=== PATIENT | female | born 1985 | race Caucasian/White ===

== ENCOUNTER 2016-09-09 02:38 | Inpatient (IN) | payer OTHER ==
[~2016-09-09] VITALS: Ht 167.6 cm; Wt 108.0 kg
[2016-09-09] MEDS ORDERED: MORPHINE SULFATE INJ 2 MG/ML DISP.SYRIN ONE (03:16)
[2016-09-09] MEDS ORDERED: MORPHINE SULFATE INJ 4 MG/ML DISP.SYRIN ONE (03:16)
[2016-09-09] MEDS ORDERED: IV NS 0.9% 1,000 ML ONE (03:16)
[2016-09-09] MEDS ORDERED: ONDANSETRON HCL/PF 4 MG/2 ML VIAL ONE (03:16)
[2016-09-09] MEDS ORDERED: FAMOTIDINE/PF INJ 20 MG/2 ML VIAL IV ONE ×2 (03:17→03:30)
[2016-09-09] MEDS ORDERED: IV NS 0.9% 1,000 ML BAG IV ONE (03:30)
[2016-09-09] MEDS ORDERED: ONDANSETRON HCL/PF 4 MG/2 ML VIAL IVP ONE (03:30)
[2016-09-09] MEDS ORDERED: MORPHINE SULFATE INJ 2 MG/ML DISP.SYRIN IV ONE (03:30)
[2016-09-09 03:53] LABS: BASOPHILS % (AUTO) 0.5 % (0.0-2.0); DIFF TOTAL % 100 %; EOSINOPHILS # (AUTO) 0.2 /CMM (0.0-0.7); EOSINOPHILS % (AUTO) 1.9 % (0.0-6.0); HEMATOCRIT 43 % (33-45); HEMOGLOBIN 14.2 g/dL (11.5-14.8); LYMPHOCYTES # (AUTO) 1.7 /CMM (0.8-4.8); LYMPHOCYTES % (AUTO) 20.4 % (20.0-44.0); MEAN CORPUSCULAR HEMOGLOBIN 29 PG (26.0-33.0); MEAN CORPUSCULAR HGB CONC 33 g/dl (31.0-36.0); MEAN CORPUSCULAR VOLUME 88 fL (82-100); MONOCYTES # (AUTO) 0.4 /CMM (0.1-1.30); MONOCYTES % (AUTO) 4.7 % (2.0-12.0); NEUTROPHILS % (AUTO) 72.5 % (43.0-81.0); PLATELET COUNT (AUTO) 202 /CMM (150-450); RED BLOOD CELL COUNT(AUTO) 4.89 MIL/uL (4.0-5.2); WHITE BLOOD COUNT (AUTO) 8.3 K/uL (4.3-11.0)
[2016-09-09 03:56] LABS: KETONES,URINE NEGATIVE (NEGATIVE); LEUKOCYTE ESTERASE ,URINE 1+ (NEGATIVE)
[2016-09-09 03:57] LABS: ADD UA MICROSCOPIC YES; CALCIUM, SERUM 8.6 mg/dL (8.5-10.1); CREATININE 0.9 mg/dL (0.6-1.3); POTASSIUM 3.8 mmol/L (3.5-5.1)
[2016-09-09 03:59] LABS: INR 1.01 (0.87-1.13); PREGNANCY TEST URINE QUAL NEGATIVE (NEGATIVE); PROTHROMBIN TIME 10.9 SECS (9.5-12.7)
[2016-09-09 04:02] LABS: ALBUMIN 3.8 g/dL (3.4-5.0); BILIRUBIN,DIRECT 0.3 mg/dL (0.0-0.2); BILIRUBIN,TOTAL 0.9 mg/dL (0.2-1.0); INDIRECT BILIRUBIN 0.6 mg/dL (0.0-1.1); TOTAL PROTEIN, SERUM 7.7 g/dL (6.4-8.2)
[2016-09-09 04:04] LABS: ADD URINE CULTURE YES; RBC,URINE 0-2 /HPF (0-2)
[2016-09-09 04:10] LABS: LACTIC ACID 0.6 mmol/L (0.4-2.0)
[2016-09-09] MEDS ORDERED: MAGNESIUM HYDROXIDE 30 ML UDC PO PRN (06:30)
[2016-09-09] MEDS ORDERED: ACETAMINOPHEN 325 MG TABLET PO PRN (06:30)
[2016-09-09] MEDS ORDERED: Z GUARD REMEDY 2 OZ OINT TP PRN (06:30)
[2016-09-09] MEDS ORDERED: ZOLPIDEM TARTRATE 5 MG TABLET PO PRN (06:30)
[2016-09-09] MEDS ORDERED: ONDANSETRON HCL/PF 4 MG/2 ML VIAL IVP PRN (06:30)
[2016-09-09] MEDS ORDERED: MAG HYDROX/AL HYDROX/SIMETH 30 ML UDC PO PRN (06:30)
[2016-09-09] MEDS: PANTOPRAZOLE 40 MG TABLET.DR PO SCH (07:30)
[2016-09-09 08:00] VITALS: BP 111/72
[2016-09-09] MEDS ORDERED: IV SET PRIMARY PUMP SET 1 EA INFUS.SET MC ONE (08:52)
[2016-09-09] MEDS: IV NS 0.9% 1,000 ML IV PRN (09:13)
[2016-09-09] MEDS: LEVOFLOXACIN 750 MG /D5W 150ML 750 MG in PREMIX 1 EA IV SCH (09:13)
[2016-09-09 12:35] LABS: ALBUMIN 3.1 g/dL (3.4-5.0); BILIRUBIN,DIRECT 0.2 mg/dL (0.0-0.2); BILIRUBIN,TOTAL 0.8 mg/dL (0.2-1.0); INDIRECT BILIRUBIN 0.6 mg/dL (0.0-1.1); TOTAL PROTEIN, SERUM 6.7 g/dL (6.4-8.2)
[2016-09-09 16:00] VITALS: BP 121/77
[2016-09-09 20:00] VITALS: BP 133/84
[2016-09-10 08:00] LABS: BASOPHILS % (AUTO) 0.7 % (0.0-2.0); DIFF TOTAL % 100 %; EOSINOPHILS # (AUTO) 0.2 /CMM (0.0-0.7); EOSINOPHILS % (AUTO) 3.4 % (0.0-6.0); HEMATOCRIT 40 % (33-45); HEMOGLOBIN 13.2 g/dL (11.5-14.8); LYMPHOCYTES # (AUTO) 2.7 /CMM (0.8-4.8); LYMPHOCYTES % (AUTO) 42.8 % (20.0-44.0); MEAN CORPUSCULAR HEMOGLOBIN 30 PG (26.0-33.0); MEAN CORPUSCULAR HGB CONC 33 g/dl (31.0-36.0); MEAN CORPUSCULAR VOLUME 89 fL (82-100); MONOCYTES # (AUTO) 0.4 /CMM (0.1-1.30); MONOCYTES % (AUTO) 5.8 % (2.0-12.0); NEUTROPHILS % (AUTO) 47.3 % (43.0-81.0); PLATELET COUNT (AUTO) 181 /CMM (150-450); RED BLOOD CELL COUNT(AUTO) 4.45 MIL/uL (4.0-5.2); WHITE BLOOD COUNT (AUTO) 6.2 K/uL (4.3-11.0)
[2016-09-10] MEDS: LEVOFLOXACIN 750 MG /D5W 150ML 750 MG in PREMIX 1 EA IV SCH (08:00)
[2016-09-10 08:31] LABS: ALBUMIN 3.1 g/dL (3.4-5.0); BILIRUBIN,DIRECT 0.2 mg/dL (0.0-0.2); BILIRUBIN,TOTAL 0.9 mg/dL (0.2-1.0); CALCIUM, SERUM 8.4 mg/dL (8.5-10.1); CREATININE 0.8 mg/dL (0.6-1.3); INDIRECT BILIRUBIN 0.7 mg/dL (0.0-1.1); POTASSIUM 4.3 mmol/L (3.5-5.1); TOTAL PROTEIN, SERUM 6.7 g/dL (6.4-8.2)
[2016-09-10] MEDS: PANTOPRAZOLE 40 MG TABLET.DR PO SCH (08:56)
[2016-09-10] MEDS: HYDROCODONE/APAP 5/325MG 1 EACH TABLET PO PRN (08:58)
[2016-09-10 16:00] VITALS: BP 126/59
[2016-09-10 20:00] VITALS: BP 105/65
[2016-09-11] MEDS: PANTOPRAZOLE 40 MG TABLET.DR PO SCH (07:30)
[2016-09-11 08:00] VITALS: BP 107/62
[2016-09-11] MEDS ORDERED: SECONDARY IV SET 1 EA INFUS.SET MC ONE (08:35)
[2016-09-11] MEDS ORDERED: IV NS 0.9% 250 ML IV ONE (08:35)
[2016-09-11] MEDS ORDERED: IV SET PRIMARY PUMP SET 1 EA INFUS.SET MC ONE (08:35)
[2016-09-11] MEDS: LEVOFLOXACIN 750 MG /D5W 150ML 750 MG in PREMIX 1 EA IV SCH (08:51)
[2016-09-11 09:30] LABS: BASOPHILS % (AUTO) 0.6 % (0.0-2.0); DIFF TOTAL % 100 %; EOSINOPHILS # (AUTO) 0.2 /CMM (0.0-0.7); EOSINOPHILS % (AUTO) 2.9 % (0.0-6.0); HEMATOCRIT 40 % (33-45); HEMOGLOBIN 13.6 g/dL (11.5-14.8); LYMPHOCYTES # (AUTO) 2.4 /CMM (0.8-4.8); LYMPHOCYTES % (AUTO) 37.8 % (20.0-44.0); MEAN CORPUSCULAR HEMOGLOBIN 30 PG (26.0-33.0); MEAN CORPUSCULAR HGB CONC 34 g/dl (31.0-36.0); MEAN CORPUSCULAR VOLUME 87 fL (82-100); MONOCYTES # (AUTO) 0.4 /CMM (0.1-1.30); MONOCYTES % (AUTO) 5.9 % (2.0-12.0); NEUTROPHILS # (AUTO) 3.3 /CMM (1.8-8.9); NEUTROPHILS % (AUTO) 52.8 % (43.0-81.0); PLATELET COUNT (AUTO) 176 /CMM (150-450); RED BLOOD CELL COUNT(AUTO) 4.62 MIL/uL (4.0-5.2); WHITE BLOOD COUNT (AUTO) 6.2 K/uL (4.3-11.0)
[2016-09-11 09:49] LABS: ALBUMIN 3.3 g/dL (3.4-5.0); BILIRUBIN,TOTAL 0.8 mg/dL (0.2-1.0); CALCIUM, SERUM 8.7 mg/dL (8.5-10.1); CREATININE 0.9 mg/dL (0.6-1.3); PHOSPHORUS 3.7 mg/dL (2.5-4.9); POTASSIUM 4.2 mmol/L (3.5-5.1)
[2016-09-11] MEDS ORDERED: IOHEXOL 100 ML IV ONE (12:51)
[2016-09-11] MEDS ORDERED: BUPIVACAINE MPF 0.5% W/EPI INJ 30 ML VIAL ONE (12:51)
[2016-09-11] MEDS ORDERED: LIDOCAINE HCL/PF 1% 30 ML SDV ONE (12:51)
[2016-09-11] MEDS ORDERED: VECURONIUM 10 MG VIAL ONE (14:32)
[2016-09-11] MEDS ORDERED: FENTANYL PF 100MCG/2ML AMPUL ONE (15:22)
[2016-09-11] MEDS ORDERED: ONDANSETRON HCL/PF 4 MG/2 ML VIAL ONE (15:43)
[2016-09-11 16:10] VITALS: BP 111/64
[2016-09-11 16:25] VITALS: BP 119/83
[2016-09-11 16:40] VITALS: BP 114/69
[2016-09-11 16:55] VITALS: BP 118/71
[2016-09-11] MEDS ORDERED: ANESTHESIA TRAY IN PYXIS 1 EA TRAY MC ONE (17:44)
[2016-09-11] MEDS: MORPHINE SULFATE INJ 2 MG/ML DISP.SYRIN IV PRN (19:52)
[2016-09-11 20:00] VITALS: BP_SYST 131; BP_SYST 139; BP_DIAS 85; BP_DIAS 87
[2016-09-11] MEDS: IV NS 0.9% 1,000 ML IV PRN (20:12)
[2016-09-12] MEDS: MORPHINE SULFATE INJ 2 MG/ML DISP.SYRIN IV PRN ×3 (00:13→13:06)
[2016-09-12] MEDS: IV NS 0.9% 1,000 ML IV PRN (04:21)
[2016-09-12] MEDS: PANTOPRAZOLE 40 MG TABLET.DR PO SCH (08:04)
[2016-09-12 08:43] VITALS: BP 101/62
[2016-09-12] MEDS ORDERED: LEVOFLOXACIN (750 MG) 750 MG TABLET PO SCH (09:00)
[2016-09-12] MEDS ORDERED: HYDR-429 PO (09:02)
[2016-09-12] MEDS ORDERED: BISA10SU8 RC (09:02)
[2016-09-12] MEDS ORDERED: IBUP-51 PO (09:02)
[2016-09-12] MEDS: HYDROCODONE/APAP 5/325MG 1 EACH TABLET PO PRN (09:42)
== END 2016-09-12 13:30 | disposition home or self-care (01) | DRG 263 ==
LOC: ER 02:38 → MED 05:58
PROVIDERS: ADMIT Internal Medicine; ATTEND Internal Medicine
PROC: B547ZZA Ultrasonography of Left Subclavian Vein, Guidance (ICD-10-PCS; 2016-09-10)
PROC: 05H633Z Insertion of Infusion Device into Left Subclavian Vein, Percutaneous Approach (ICD-10-PCS; 2016-09-10)
PROC: 0FB04ZX Excision of Liver, Percutaneous Endoscopic Approach, Diagnostic (ICD-10-PCS; principal; 2016-09-11 13:05)
PROC: 0FC98ZZ Extirpation of Matter from Common Bile Duct, Via Natural or Artificial Opening Endoscopic (ICD-10-PCS; principal; 2016-09-11 13:05)
PROC: 0FT44ZZ Resection of Gallbladder, Percutaneous Endoscopic Approach (ICD-10-PCS; principal; 2016-09-11 13:05)
DX: K80.70 Calculus of gallbladder and bile duct without cholecystitis without obstruction (principal); K76.0 Fatty (change of) liver, not elsewhere classified; E88.09 Other disorders of plasma-protein metabolism, not elsewhere classified; E66.01 Morbid (severe) obesity due to excess calories; R74.0 Nonspecific elevation of levels of transaminase and lactic acid dehydrogenase [LDH]; K59.00 Constipation, unspecified; Z68.38 Body mass index [BMI] 38.0-38.9, adult
CPT/HCPCS: 36415; 71010-TC; 74181-TC; 80048-TC; 80053-TC; 80076-TC; 81000-TC; 83605-TC; 83690-TC; 83735-TC; 84100-TC; 84703-TC; 85025-TC; 85730-TC; 86850-TC; 87081-TC; 87086-TC; 88304-TC; 88305-TC; 88307-TC; 88313-TC; A4216; A4606; J1956; J2270; J2405; J3010; J3490; J7030; J7050; Q9967; Z7610

== ENCOUNTER 2017-05-05 19:37 | Emergency (ER) | payer OTHER ==
[~2017-05-05] VITALS: Ht 170.2 cm; Wt 95.3 kg
[~2017-05-05 19:37] MED LIST: BISA10SU8 RC; HYDR-548 PO; IBUP-51 PO
--- NOTE | 2017-05-05 19:50 | NUR ---
31 YO FEMALE BB SELF. PT IS ALERT X 3, C/O RIGHT LOWER ABD PAIN, ON AND OFF X 3 DAYS. PT AMBULATED TO ER BED, SKIN WARM AND DRY. PT GOWNED, PLACED ON CURATORIAL ASSISTANT. AWAITING ORDERS FROM PROVIDER
[2017-05-05 19:56] LABS: APPEARANCE,URINE Slightly Cloudy (CLEAR); BILIRUBIN,URINE Negative (NEGATIVE); BLOOD, URINE Negative Ery/uL (NEGATIVE); COLOR,URINE Yellow (YELLOW); KETONES,URINE Negative (NEGATIVE); LEUKOCYTE ESTERASE ,URINE Small (NEGATIVE); NITRITE, URINE Negative (NEGATIVE); PROTEIN,URINE Trace mg/dl (NEGATIVE); UGLUCOSE Negative (NEGATIVE)
--- NOTE | 2017-05-05 20:02 | NUR ---
20G LEFT HAND IV STARTED. BLOOD SAMPLE OBTAINED AND SENT TO LAB.
[2017-05-05 20:04] LABS: BACTERIA,URINE Few /HPF (None Seen); MUCUS,URINE Few /LPF (None Seen); RBC,URINE 0-2 /HPF (0-2); SQUAMOUS EPITHELIAL CELL,UR Moderate /HPF (None Seen)
[2017-05-05 20:04] LABS: BASOPHILS # (AUTO) 0.1 /CMM (0.0-0.2); BASOPHILS % (AUTO) 1.6 % (0.0-2.0); EOSINOPHILS # (AUTO) 0.2 /CMM (0.0-0.7); EOSINOPHILS % (AUTO) 2.7 % (0.0-6.0); HEMATOCRIT 43 % (33-45); HEMOGLOBIN 13.8 g/dL (11.5-14.8); LYMPHOCYTES # (AUTO) 3.2 /CMM (0.8-4.8); LYMPHOCYTES % (AUTO) 35.8 % (20.0-44.0); MEAN CORPUSCULAR HEMOGLOBIN 28 PG (26.0-33.0); MEAN CORPUSCULAR HGB CONC 32 g/dl (31.0-36.0); MEAN CORPUSCULAR VOLUME 86 fL (82-100); MONOCYTES # (AUTO) 0.4 /CMM (0.1-1.30); MONOCYTES % (AUTO) 4.5 % (2.0-12.0); NEUTROPHILS # (AUTO) 4.9 /CMM (1.8-8.9); NEUTROPHILS % (AUTO) 55.4 % (43.0-81.0); PLATELET COUNT (AUTO) 204 /CMM (150-450); RDW COEFFICIENT OF VARIATION 11.4 (11.5-15.0); RED BLOOD CELL COUNT(AUTO) 4.97 MIL/uL (4.0-5.2); WHITE BLOOD COUNT (AUTO) 8.8 K/uL (4.3-11.0)
[2017-05-05] MEDS ORDERED: KETOROLAC TROMETHAMINE INJ 30 MG/ML VIAL ONE (20:11)
[2017-05-05 20:15] LABS: CALCIUM, SERUM 8.5 mg/dL (8.5-10.1); CREATININE 0.7 mg/dL (0.6-1.3)
--- NOTE | 2017-05-05 20:18 | NUR ---
MEDICATED PT ORDERED
[2017-05-05 20:20] LABS: ALBUMIN 3.5 g/dL (3.4-5.0); BILIRUBIN,DIRECT 0.1 mg/dL (0.0-0.2); BILIRUBIN,TOTAL 0.8 mg/dL (0.2-1.0); TOTAL PROTEIN, SERUM 7.4 g/dL (6.4-8.2)
[2017-05-05] MEDS ORDERED: KETOROLAC TROMETHAMINE INJ 30 MG/ML VIAL IV ONE (20:30)
[2017-05-05 20:49] VITALS: BP 145/83
--- NOTE | 2017-05-05 20:49 | NUR ---
Patient discharged to home in stable condition. Written and verbal after care instructions given. Patient verbalizes understanding of instruction.IV removed. Catheter intact and site benign. Pressure and 4x4 applied to site. No bleeding noted. PT ambulatory with a steady gait VITAL SIGNS WITHIN NORMAL LIMITS.
== END 2017-05-05 20:50 | disposition home or self-care (01) ==
LOC: ER 19:40
DX: N39.0 Urinary tract infection, site not specified (principal); F17.200 Nicotine dependence, unspecified, uncomplicated
CPT/HCPCS: 36415; 80048-TC; 80076-TC; 81000-TC; 83690-TC; 84703-TC; 85025-TC; 87086-TC; A4606; J1885; Z7610

== ENCOUNTER 2017-06-23 18:17 | Emergency (ER) | payer OTHER ==
[~2017-06-23] VITALS: Ht 170.2 cm; Wt 94.8 kg
--- NOTE | 2017-06-23 18:20 | NUR ---
PRESENTS TO ER C/O LEFT SIDED CHEST PAIN RADIATES TO LEFT ARM LASTED 1 MINUTES THIS PM. PATIENT IS A/OX 4. BREATHING EVEN AND UNLABORED. NO SOB, NO DISTRESS. VITALS STABLE. SAFETY AND COMFORT MEASURES IN PLACE. AWAITING MD ORDERS.
--- NOTE | 2017-06-23 18:50 | NUR ---
[employer] CONSTRUCTION SUPERVISOR AT BEDSIDE.
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
--- NOTE | 2017-06-23 19:04 | NUR ---
RECEIVED REPORT FROM TRAVON TRIPP FOR WAQAR.
--- NOTE | 2017-06-23 19:20 | NUR ---
DR. KWON SPEAKING TO PT REGARDING RESULTS
--- NOTE | 2017-06-23 19:26 | NUR ---
PT LEFT WITHOUT D/C PAPERS.
[2017-06-23 19:27] VITALS: BP 111/58
== END 2017-06-23 19:27 | disposition home or self-care (01) ==
LOC: ER 18:18
DX: R07.9 Chest pain, unspecified (principal); E03.9 Hypothyroidism, unspecified; Z98.890 Other specified postprocedural states; Z88.0 Allergy status to penicillin; Z87.891 Personal history of nicotine dependence
CPT/HCPCS: 71010; 93005; 99284; A4606; Z7610

== ENCOUNTER 2017-08-05 18:55 | Emergency (ER) | payer OTHER ==
[~2017-08-05] VITALS: Ht 167.6 cm; Wt 90.7 kg
--- NOTE | 2017-08-05 19:30 | NUR ---
Pt BIB SELF IN ER BED 12. C/O LUMP TO RUQ ABD SINCE DECEMBER. HAS BEEN EXPERIENCING PAIN WITH REDNESS, AND NOW THE WHITE BUMP IS GETTING WORSE. BEING SEEN BY MD IN ROOM. NO S/S OF ACUTE DISTRESS OR SOB NOTED. RESPIRATIONS EVEN AND UNLABORED. VS STABLE AT THIS TIME. T: 98F, HR 79, BP 120/75, R 18, O2 SAT: 97%. Addendum: 08/05/17 at 1945 by KRISTIE Pt MOVED TO ER BED 14
--- NOTE | 2017-08-05 19:40 | NUR ---
MD WILL BE REMOVING Pt's CYST AT BEDSIDE.
[2017-08-05] MEDS ORDERED: LIDOCAINE 1%-EPI 1:100,000 20 ML VIAL TP ONE (20:00)
[2017-08-05 20:44] VITALS: BP 119/75
--- NOTE | 2017-08-05 20:46 | NUR ---
Patient discharged to home in stable condition. Written and verbal after care instructions given. Patient verbalizes understanding of instruction pt left on foot, with steady gait.
== END 2017-08-05 20:50 | disposition home or self-care (01) ==
LOC: ER 18:56
DX: L72.3 Sebaceous cyst (principal); L08.9 Local infection of the skin and subcutaneous tissue, unspecified; E03.9 Hypothyroidism, unspecified; F17.200 Nicotine dependence, unspecified, uncomplicated; Z88.0 Allergy status to penicillin
CPT/HCPCS: 10061; 99284; A4606; A6403; A6407; Z7610

== ENCOUNTER 2017-08-26 19:03 | Emergency (ER) | payer OTHER ==
[~2017-08-26] VITALS: Ht 170.2 cm; Wt 90.7 kg
[2017-08-26 19:03] VITALS: BP 135/69
--- NOTE | 2017-08-26 19:20 | NUR ---
BIB SELF C/O RLQ ABDOMIONAL PAIN R/T R FLANK X 3 DAYS, NAD NOTED, VSS, RESP EVEN AND UNLABORED. PT PUT ON MONITOR, WAITING FOR MD BUTLER.
--- NOTE | 2017-08-26 20:00 | NUR ---
BLOOD AND URINE SAMPLE SENT TO LAB
[2017-08-26 20:24] LABS: APPEARANCE,URINE Clear (CLEAR); BILIRUBIN,URINE Negative (NEGATIVE); BLOOD, URINE Negative Ery/uL (NEGATIVE); COLOR,URINE Yellow (YELLOW); KETONES,URINE Negative (NEGATIVE); LEUKOCYTE ESTERASE ,URINE Small (NEGATIVE); NITRITE, URINE Negative (NEGATIVE); PH,URINE 6.5 (5.0-8.0); PROTEIN,URINE Negative (NEGATIVE); UGLUCOSE Negative (NEGATIVE); UROBILINOGEN,URINE 0.2 EU/dL (0.2)
[2017-08-26 20:26] LABS: CALCIUM, SERUM 8.5 mg/dL (8.5-10.1); CREATININE 0.7 mg/dL (0.6-1.3); POTASSIUM 4.1 mmol/L (3.5-5.1)
[2017-08-26] MEDS ORDERED: KETOROLAC TROMETHAMINE INJ 30 MG/ML VIAL IV ONE (20:30)
[2017-08-26 20:32] LABS: ALBUMIN 3.6 g/dL (3.4-5.0); BILIRUBIN,DIRECT 0.1 mg/dL (0.0-0.2); BILIRUBIN,TOTAL 0.5 mg/dL (0.2-1.0); TOTAL PROTEIN, SERUM 7.7 g/dL (6.4-8.2)
[2017-08-26 20:36] LABS: BACTERIA,URINE Few /HPF (None Seen); RBC,URINE 0-2 /HPF (0-2); SQUAMOUS EPITHELIAL CELL,UR Moderate /HPF (None Seen); URINE AMORPHOUS URATE Few /HPF (None Seen); WBC,URINE 4-7/HPF /HPF (0-3)
[2017-08-26] MEDS ORDERED: IBUPROFEN 600 MG TABLET PO ONE ×2 (21:14→21:30)
[2017-08-26 21:34] LABS: BASOPHILS # (AUTO) 0.1 /CMM (0.0-0.2); BASOPHILS % (AUTO) 0.6 % (0.0-2.0); EOSINOPHILS # (AUTO) 0.2 /CMM (0.0-0.7); EOSINOPHILS % (AUTO) 2.4 % (0.0-6.0); HEMATOCRIT 43 % (33-45); HEMOGLOBIN 13.8 g/dL (11.5-14.8); LYMPHOCYTES # (AUTO) 2.9 /CMM (0.8-4.8); LYMPHOCYTES % (AUTO) 36.1 % (20.0-44.0); MEAN CORPUSCULAR HEMOGLOBIN 29 PG (26.0-33.0); MEAN CORPUSCULAR HGB CONC 32 g/dl (31.0-36.0); MEAN CORPUSCULAR VOLUME 88 fL (82-100); MONOCYTES # (AUTO) 0.4 /CMM (0.1-1.30); MONOCYTES % (AUTO) 5.4 % (2.0-12.0); NEUTROPHILS # (AUTO) 4.5 /CMM (1.8-8.9); NEUTROPHILS % (AUTO) 55.5 % (43.0-81.0); PLATELET COUNT (AUTO) 161 /CMM (150-450); RDW COEFFICIENT OF VARIATION 13.7 (11.5-15.0); RED BLOOD CELL COUNT(AUTO) 4.82 MIL/uL (4.0-5.2); WHITE BLOOD COUNT (AUTO) 8.1 K/uL (4.3-11.0)
== END 2017-08-26 21:56 | disposition home or self-care (01) ==
LOC: ER 19:05
DX: N39.0 Urinary tract infection, site not specified (principal); E03.9 Hypothyroidism, unspecified; F17.200 Nicotine dependence, unspecified, uncomplicated; Z88.0 Allergy status to penicillin; Z90.49 Acquired absence of other specified parts of digestive tract
CPT/HCPCS: 36415; 80048; 80076; 81001; 83690; 84703; 85025; 99284; A4606; Z7610; 81000-TC

== ENCOUNTER 2017-10-31 14:55 | Emergency (ER) | payer OTHER ==
[~2017-10-31] VITALS: Ht 170.2 cm; Wt 113.4 kg
[2017-10-31 15:27] VITALS: BP 140/83
--- NOTE | 2017-10-31 15:27 | NUR ---
Patient discharged to home in stable condition. Written and verbal after care instructions given. Patient verbalizes understanding of instruction.
== END 2017-10-31 15:28 | disposition home or self-care (01) ==
LOC: ER 14:57
DX: R51 Headache (principal); E03.9 Hypothyroidism, unspecified; F17.200 Nicotine dependence, unspecified, uncomplicated; Z88.0 Allergy status to penicillin; Z90.49 Acquired absence of other specified parts of digestive tract
CPT/HCPCS: 99283; A4606; Z7610

== ENCOUNTER 2018-04-06 18:16 | Emergency (ER) | payer OTHER ==
[~2018-04-06] VITALS: Ht 167.6 cm; Wt 120.2 kg
--- NOTE | 2018-04-06 19:15 | NUR ---
A/OX4, C/O ABD AIN- RLQ X 3 DAYS. NAD VSS RR EVEN AND UNLABORED. PT SEEN AND EVALUATED BY JOEL PAVON
[2018-04-06] MEDS ORDERED: KETOROLAC TROMETHAMINE INJ 30 MG/ML VIAL IV ONE (19:30)
[2018-04-06] MEDS ORDERED: IV NS 0.9% 1,000 ML BAG IV ONE (19:30)
[2018-04-06] MEDS ORDERED: FAMOTIDINE/PF INJ 20 MG/2 ML VIAL IV ONE ×2 (19:30→19:59)
[2018-04-06 19:35] LABS: APPEARANCE,URINE Cloudy (CLEAR); BILIRUBIN,URINE Negative (NEGATIVE); BLOOD, URINE Large Ery/uL (NEGATIVE); COLOR,URINE Yellow (YELLOW); KETONES,URINE Negative (NEGATIVE); LEUKOCYTE ESTERASE ,URINE Small (NEGATIVE); NITRITE, URINE Negative (NEGATIVE); PROTEIN,URINE Negative (NEGATIVE); UGLUCOSE Negative (NEGATIVE); UROBILINOGEN,URINE 0.2 EU/dL (0.2)
[2018-04-06 19:50] LABS: BACTERIA,URINE Moderate /HPF (None Seen); SQUAMOUS EPITHELIAL CELL,UR Many /HPF (None Seen)
[2018-04-06] MEDS ORDERED: IOHEXOL-300 100 ML VIAL IV ONE (19:52)
[2018-04-06] MEDS ORDERED: KETOROLAC TROMETHAMINE 15 MG/ML VIAL ONE (19:59)
--- NOTE | 2018-04-06 20:00 | NUR ---
LAB HAS PICKED UP BLOOD
[2018-04-06 20:03] LABS: BASOPHILS # (AUTO) 0.2 /CMM (0.0-0.2); BASOPHILS % (AUTO) 3.5 % (0.0-2.0); EOSINOPHILS % (AUTO) 2.6 % (0.0-6.0); HEMATOCRIT 46 % (33-45); LYMPHOCYTES # (AUTO) 2.7 /CMM (0.8-4.8); LYMPHOCYTES % (AUTO) 38.1 % (20.0-44.0); MEAN CORPUSCULAR HEMOGLOBIN 29 PG (26.0-33.0); MEAN CORPUSCULAR HGB CONC 33 g/dl (31.0-36.0); MEAN CORPUSCULAR VOLUME 87 fL (82-100); MONOCYTES # (AUTO) 0.3 /CMM (0.1-1.30); MONOCYTES % (AUTO) 4.5 % (2.0-12.0); NEUTROPHILS # (AUTO) 3.6 /CMM (1.8-8.9); NEUTROPHILS % (AUTO) 51.3 % (43.0-81.0); PLATELET COUNT (AUTO) 208 /CMM (150-450); RDW COEFFICIENT OF VARIATION 11.8 (11.5-15.0); RED BLOOD CELL COUNT(AUTO) 5.23 MIL/uL (4.0-5.2)
--- NOTE | 2018-04-06 20:07 | NUR ---
PT OFF TO CT
[2018-04-06 20:35] LABS: CALCIUM, SERUM 8.2 mg/dL (8.5-10.1); CREATININE 0.7 mg/dL (0.6-1.3)
[2018-04-06 20:40] LABS: ALBUMIN 3.7 g/dL (3.4-5.0); BILIRUBIN,DIRECT 0.1 mg/dL (0.0-0.2); TOTAL PROTEIN, SERUM 8.2 g/dL (6.4-8.2)
[2018-04-06 21:34] VITALS: BP 130/97
== END 2018-04-06 21:34 | disposition home or self-care (01) ==
LOC: ER 18:21
DX: R10.31 Right lower quadrant pain (principal); E03.9 Hypothyroidism, unspecified; F17.200 Nicotine dependence, unspecified, uncomplicated; Z90.49 Acquired absence of other specified parts of digestive tract; Z87.19 Personal history of other diseases of the digestive system; Z88.0 Allergy status to penicillin
CPT/HCPCS: 36415; 74177; 80048; 80076; 81001; 83690; 84703; 85025; 87086; 96374; 96375; 99285; A4606; J1885; J3490; J7030; Q9967; Z7610; 81000-TC

== ENCOUNTER 2018-11-04 15:13 | Emergency (ER) | payer OTHER ==
[~2018-11-04] VITALS: Ht 167.6 cm; Wt 121.1 kg
[~2018-11-04 15:13] MED LIST changes: +HYDR-4354 PO; -HYDR-548 PO
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
[2018-11-04] MEDS ORDERED: ONDANSETRON 4 MG TAB.RAPDIS SL ONE (16:00)
[2018-11-04] MEDS ORDERED: TDAP [DIPH/PERTUSSIS/TET] 0.5 ML VIAL IM ONE ×2 (16:00→18:11)
[2018-11-04] MEDS ORDERED: HYDROCODONE/APAP 10/325MG 1 EA TABLET PO ONE (16:00)
[2018-11-04] MEDS ORDERED: HYDROCODONE/APAP 10/325MG 1 EA TABLET ONE (16:04)
[2018-11-04] MEDS ORDERED: ONDANSETRON 4 MG TAB.RAPDIS ONE (16:04)
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
[2018-11-04 18:30] VITALS: BP 149/82
--- NOTE | 2018-11-04 18:47 | NUR ---
Patient discharged to home in stable condition. Written and verbal after care instructions given. Patient verbalizes understanding of instruction.
== END 2018-11-04 18:47 | disposition home or self-care (01) ==
LOC: ER 15:17
DX: S01.01XA Laceration without foreign body of scalp, initial encounter (principal); E03.9 Hypothyroidism, unspecified; F17.200 Nicotine dependence, unspecified, uncomplicated; Z88.0 Allergy status to penicillin; Z79.899 Other long term (current) drug therapy; Y04.0XXA Assault by unarmed brawl or fight, initial encounter; Y93.89 Activity, other specified; Y92.89 Other specified places as the place of occurrence of the external cause; Y99.8 Other external cause status
CPT/HCPCS: 12002; 70450; 70486; 72125; 90471; 90715; 99284; A4606; A6402; A6403 ×2; Q0162

== ENCOUNTER 2018-11-11 09:50 | Emergency (ER) | payer OTHER ==
[~2018-11-11] VITALS: Ht 167.6 cm; Wt 104.3 kg
[2018-11-11 09:50] VITALS: BP 149/97
== END 2018-11-11 10:34 | disposition home or self-care (01) ==
LOC: ER 09:52
DX: S01.01XD Laceration without foreign body of scalp, subsequent encounter (principal); E03.9 Hypothyroidism, unspecified; F17.200 Nicotine dependence, unspecified, uncomplicated; Z98.890 Other specified postprocedural states; Z88.0 Allergy status to penicillin; Z79.899 Other long term (current) drug therapy; Y08.89XD Assault by other specified means, subsequent encounter
CPT/HCPCS: 99281; A4606; Z7502

== ENCOUNTER 2019-02-14 09:14 | Emergency (ER) | payer OTHER ==
[~2019-02-14] VITALS: Ht 167.6 cm; Wt 104.3 kg
--- NOTE | 2019-02-14 09:25 | NUR ---
C/O RLQ ABDOMINAL PAIN SINCE YESTERDAY MORNING, -VOMITING,-DIARRHEA,-FEVER. PATIENT A/OX4, BREATHING EVEN AND UNLABORED, NO SOB NOTED. PATIENT KEPT COMFORTABLE IN BED. NO DISTRESS NOTED.
--- NOTE | 2019-02-14 10:12 | NUR ---
URINE AND LABS SAMPLE OBTAINED AND SENT TO LAB.
[2019-02-14 10:14] LABS: BASOPHILS # (AUTO) 0.3 /CMM (0.0-0.2); BASOPHILS % (AUTO) 3.6 % (0.0-2.0); EOSINOPHILS % (AUTO) 3.4 % (0.0-6.0); HEMATOCRIT 43 % (33-45); HEMOGLOBIN 14.4 g/dL (11.5-14.8); LYMPHOCYTES # (AUTO) 2.5 /CMM (0.8-4.8); LYMPHOCYTES % (AUTO) 33.4 % (20.0-44.0); MEAN CORPUSCULAR HGB CONC 33 g/dl (31.0-36.0); MEAN CORPUSCULAR VOLUME 89 fL (82-100); MONOCYTES # (AUTO) 0.4 /CMM (0.1-1.30); MONOCYTES % (AUTO) 5.7 % (2.0-12.0); NEUTROPHILS % (AUTO) 53.9 % (43.0-81.0); PLATELET COUNT (AUTO) 196 /CMM (150-450); RED BLOOD CELL COUNT(AUTO) 4.85 MIL/uL (4.0-5.2); WHITE BLOOD COUNT (AUTO) 7.4 K/uL (4.3-11.0)
[2019-02-14 10:17] LABS: APPEARANCE,URINE Slightly Cloudy (CLEAR); BILIRUBIN,URINE MODERATE (NEGATIVE); BLOOD, URINE Moderate Ery/uL (NEGATIVE); COLOR,URINE Dark Yellow (YELLOW); KETONES,URINE 15 (NEGATIVE); LEUKOCYTE ESTERASE ,URINE Negative (NEGATIVE); NITRITE, URINE Negative (NEGATIVE); PH,URINE 5.5 (5.0-8.0); PROTEIN,URINE 30 mg/dl (NEGATIVE); UGLUCOSE Negative (NEGATIVE); UROBILINOGEN,URINE 0.2 EU/dL (0.2)
[2019-02-14 10:28] LABS: BACTERIA,URINE Few /HPF (None Seen); RBC,URINE 15-20 /HPF (0-2); SQUAMOUS EPITHELIAL CELL,UR Moderate /HPF (None Seen)
[2019-02-14 10:29] LABS: CALCIUM, SERUM 8.7 mg/dL (8.5-10.1); CREATININE 0.9 mg/dL (0.6-1.3); POTASSIUM 3.7 mmol/L (3.5-5.1)
[2019-02-14 10:33] LABS: ALBUMIN 3.9 g/dL (3.4-5.0); BILIRUBIN,DIRECT 0.1 mg/dL (0.0-0.2); BILIRUBIN,TOTAL 0.7 mg/dL (0.2-1.0); TOTAL PROTEIN, SERUM 7.7 g/dL (6.4-8.2)
--- NOTE | 2019-02-14 10:46 | NUR ---
Patient discharged to home in stable condition. Written and verbal after care instructions given. Patient verbalizes understanding of instruction.
[2019-02-14 10:48] VITALS: BP 130/68
== END 2019-02-14 10:49 | disposition home or self-care (01) ==
LOC: ER 09:18
DX: R10.2 Pelvic and perineal pain (principal); N39.0 Urinary tract infection, site not specified; E03.9 Hypothyroidism, unspecified; F17.200 Nicotine dependence, unspecified, uncomplicated; Z88.0 Allergy status to penicillin; Z98.890 Other specified postprocedural states
CPT/HCPCS: 36415; 76856-TC; 80048-TC; 80076-TC; 81000-TC; 83690-TC; 84703-TC; 85025-TC

== ENCOUNTER 2019-04-30 22:42 | Emergency (ER) | payer OTHER ==
[~2019-04-30] VITALS: Ht 167.6 cm; Wt 95.3 kg
--- NOTE | 2019-04-30 22:56 | NUR ---
BIBSELF C/O INTERMITTENT CHEST PRESSURE/SOB X 3 WEEKS. DENIES ANY CARDIAC HX, STATES PRESSURE IS WORSE ON EXERTION. STATES PAIN OF 5/10 AND ACHING. NO ACUTE DISTRESS NOTED. AOX4, AMB, VSS, RR EVEN AND UNLABORED ON RA. MADE COMFORTABLE, READY FOR EVAL.
[2019-04-30] MEDS ORDERED: LIDOCAINE VISCOUS 2% UD 15 ML UDC MM ONE (23:00)
[2019-04-30] MEDS ORDERED: KETOROLAC TROMETHAMINE INJ 30 MG/ML VIAL IV ONE (23:00)
[2019-04-30] MEDS ORDERED: IV NS 0.9% 500 ML BAG IV ONE (23:00)
[2019-04-30] MEDS ORDERED: MAG HYDROX/AL HYDROX/SIMETH 30 ML UDC PO ONE (23:00)
[2019-04-30] MEDS ORDERED: MAG HYDROX/AL HYDROX/SIMETH 30 ML UDC ONE (23:05)
[2019-04-30] MEDS ORDERED: LIDOCAINE VISCOUS 2% UD 15 ML UDC ONE (23:05)
[2019-04-30] MEDS ORDERED: KETOROLAC TROMETHAMINE 15 MG/ML VIAL ONE (23:05)
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
[2019-04-30] MEDS ORDERED: KETOROLAC TROMETHAMINE INJ 30 MG/ML VIAL IM ONE (23:30)
[2019-04-30 23:50] LABS: BASOPHILS # (AUTO) 0.1 /CMM (0.0-0.2); BASOPHILS % (AUTO) 1.5 % (0.0-2.0); EOSINOPHILS % (AUTO) 4.1 % (0.0-6.0); HEMATOCRIT 44 % (33-45); HEMOGLOBIN 14.3 g/dL (11.5-14.8); LYMPHOCYTES # (AUTO) 3.2 /CMM (0.8-4.8); LYMPHOCYTES % (AUTO) 36.3 % (20.0-44.0); MEAN CORPUSCULAR HGB CONC 33 g/dl (31.0-36.0); MEAN CORPUSCULAR VOLUME 90 fL (82-100); MONOCYTES # (AUTO) 0.5 /CMM (0.1-1.30); MONOCYTES % (AUTO) 5.3 % (2.0-12.0); NEUTROPHILS # (AUTO) 4.6 /CMM (1.8-8.9); NEUTROPHILS % (AUTO) 52.8 % (43.0-81.0); PLATELET COUNT (AUTO) 174 /CMM (150-450); RED BLOOD CELL COUNT(AUTO) 4.83 MIL/uL (4.0-5.2); WHITE BLOOD COUNT (AUTO) 8.7 K/uL (4.3-11.0)
[2019-05-01 00:11] LABS: ALANINE AMINOTRANSFERASE 33 U/L (12-78); ALBUMIN 3.5 g/dL (3.4-5.0); ALKALINE PHOSPHATASE 62 U/L (46-116); ASPARTATE AMINOTRANSFERASE 21 U/L (15-37); BILIRUBIN,DIRECT 0.1 mg/dL (0.0-0.2); BILIRUBIN,TOTAL 0.3 mg/dL (0.2-1.0); CALCIUM, SERUM 8.6 mg/dL (8.5-10.1); CARBON DIOXIDE 24 mmol/L (21-32); CHLORIDE 104 mmol/L (98-107); GLUCOSE 127 mg/dL (74-106); LIPASE 98 U/L (73-393); POTASSIUM 3.8 mmol/L (3.5-5.1); SODIUM SERUM 139 mmol/L (136-145); TOTAL PROTEIN, SERUM 7.4 g/dL (6.4-8.2); UREA NITROGEN, BLOOD 14 mg/dL (7-18)
[2019-05-01 00:18] LABS: THYROID STIMULATING HORMONE 53.793 uIU/mL (0.358-3.74)
--- NOTE | 2019-05-01 00:48 | NUR ---
Patient discharged to home in stable condition. Written and verbal after care instructions given. Patient verbalizes understanding of instruction.
[2019-05-01 00:49] VITALS: BP 150/74
== END 2019-05-01 00:50 | disposition home or self-care (01) ==
LOC: ER 22:45
DX: R07.89 Other chest pain (principal); R06.02 Shortness of breath; E03.9 Hypothyroidism, unspecified; F17.200 Nicotine dependence, unspecified, uncomplicated; Z98.890 Other specified postprocedural states; Z88.0 Allergy status to penicillin
CPT/HCPCS: 36415; 71045-TC; 80048-TC; 80076-TC; 83690-TC; 84439-TC; 84443-TC; 84481; 84484-TC; 85025-TC; J1885; J7040

== ENCOUNTER 2020-04-20 23:38 | Emergency (ER) | payer OTHER ==
[~2020-04-20] VITALS: Ht 170.2 cm; Wt 90.7 kg
--- NOTE | 2020-04-21 00:01 | NUR ---
PT AAOX4. BIBSELF C/O DRY COUGH AND SOB X 16 DAYS. PLACED IN BED 7 ON MONITOR AND PULSE OX. VSS.
--- NOTE | 2020-04-21 00:26 | NUR ---
RADIOLOGY CALLED FOR XRAY
--- NOTE | 2020-04-21 00:26 | NUR ---
COVID SWAB SENT TO LAB
--- NOTE | 2020-04-21 01:44 | NUR ---
Patient discharged to home in stable condition. Written and verbal after care instructions given. Patient verbalizes understanding of instruction and RX. Pt ambulated with steady gait. vss.
[2020-04-21 01:45] VITALS: BP 131/75
== END 2020-04-21 01:45 | disposition home or self-care (01) ==
LOC: ER 23:43
DX: R05 Cough (principal); Z20.828 Contact with and (suspected) exposure to other viral communicable diseases; F17.200 Nicotine dependence, unspecified, uncomplicated; Z88.0 Allergy status to penicillin; E03.9 Hypothyroidism, unspecified
CPT/HCPCS: 71045; 99284; C9803; U0003

== ENCOUNTER 2020-04-28 18:19 | Emergency (ER) | payer OTHER ==
[~2020-04-28] VITALS: Ht 170.2 cm; Wt 90.7 kg
[2020-04-28 18:25] VITALS: BP 141/91
== END 2020-04-28 19:04 | disposition home or self-care (01) ==
LOC: ER 18:19
DX: J42 Unspecified chronic bronchitis (principal); E03.9 Hypothyroidism, unspecified; E66.01 Morbid (severe) obesity due to excess calories; Z68.31 Body mass index [BMI] 31.0-31.9, adult; Z98.890 Other specified postprocedural states; Z88.0 Allergy status to penicillin

== ENCOUNTER 2022-06-28 19:02 | Emergency (ER) | payer OTHER ==
[~2022-06-28] VITALS: Ht 170.2 cm; Wt 124.7 kg
--- NOTE | 2022-06-28 19:23 | NUR ---
DR. VENTURA AT PT'S BEDSIDE FOR EVAL WITH RN REHABILITATION SERVICES MANAGER
[2022-06-28] MEDS ORDERED: CEPH500C2 PO (20:00)
--- NOTE | 2022-06-28 20:50 | NUR ---
Patient discharged to home in stable condition. Written and verbal after care instructions given. Patient verbalizes understanding of instruction.
[2022-06-28 22:07] VITALS: BP 138/89
== END 2022-06-28 22:08 | disposition home or self-care (01) ==
LOC: ER 19:08
DX: N61.1 Abscess of the breast and nipple (principal); M79.605 Pain in left leg; E03.9 Hypothyroidism, unspecified; Z88.0 Allergy status to penicillin; Z79.899 Other long term (current) drug therapy
CPT/HCPCS: 93971-TC

== ENCOUNTER 2022-10-10 14:53 | Emergency (ER) | payer OTHER ==
[~2022-10-10] VITALS: Ht 170.2 cm; Wt 106.6 kg
[~2022-10-10 14:53] MED LIST changes: +CEPH500C2 PO
--- NOTE | 2022-10-10 15:20 | NUR ---
BIB SELF C/O PAIN AT THE BACK OF THE HEAD X7 DAYS
--- NOTE | 2022-10-10 15:52 | NUR ---
URINE SAMPLE OBTAINED SENT TO LAB
[2022-10-10] MEDS ORDERED: IBUP-1957 PO (17:06)
[2022-10-10] MEDS ORDERED: CYCL5TAB PO (17:06)
[2022-10-10 17:15] VITALS: BP 128/88
== END 2022-10-10 17:15 | disposition home or self-care (01) ==
LOC: ER 15:05
DX: G44.209 Tension-type headache, unspecified, not intractable (principal); E03.9 Hypothyroidism, unspecified; Z88.0 Allergy status to penicillin; Z79.899 Other long term (current) drug therapy
CPT/HCPCS: 70450-TC; 84703-TC

== ENCOUNTER 2023-01-23 22:38 | Emergency (ER) | payer OTHER ==
[~2023-01-23] VITALS: Ht 165.1 cm; Wt 119.7 kg
[~2023-01-23 22:38] MED LIST changes: +CYCL5TAB PO; +IBUP-1957 PO
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
[2023-01-24] MEDS ORDERED: IPRATROPIUM NEB FS 0.5 MG/2.5 ML AMPUL.NEB NEB ONE (00:30)
[2023-01-24] MEDS ORDERED: GUAIFENESIN/CODEINE 10 ML UDC PO PRN (00:30)
[2023-01-24] MEDS ORDERED: ALBUTEROL FS 2.5 MG/3 ML VIAL.NEB NEB ONE (00:30)
[2023-01-24] MEDS ORDERED: predniSONE 50 MG TABLET PO ONE (00:30)
[2023-01-24] MEDS ORDERED: ALBU8.5H8 IH (00:34)
[2023-01-24] MEDS ORDERED: PROM118S PO ×2 (00:34→01:52)
[2023-01-24] MEDS ORDERED: ALBU0.633 IH (00:34)
[2023-01-24] MEDS ORDERED: PRED20TA PO (00:34)
[2023-01-24] MEDS ORDERED: GUAIFENESIN/CODEINE 10 ML UDC ONE (00:38)
[2023-01-24] MEDS ORDERED: predniSONE 20 MG TABLET ONE (00:38)
--- NOTE | 2023-01-24 00:40 | NUR ---
20G IV AT [facility]. BLOOD COLLECTED AND SENT TO LAB
--- NOTE | 2023-01-24 00:45 | NUR ---
XR AT BEDSIDE
--- NOTE | 2023-01-24 00:45 | NUR ---
RT AT BEDSIDE
[2023-01-24] MEDS ORDERED: ALBUTEROL FS 2.5 MG/3 ML VIAL.NEB ONE (00:46)
[2023-01-24] MEDS ORDERED: IPRATROPIUM NEB FS 0.5 MG/2.5 ML AMPUL.NEB ONE (00:46)
--- NOTE | 2023-01-24 01:26 | NUR ---
Patient discharged to home in stable condition. Written and verbal after care instructions given. Patient verbalizes understanding of instruction.IV removed. Catheter intact and site benign. Pressure and 4x4 applied to site. No bleeding noted.
[2023-01-24 01:27] VITALS: BP 148/111
[2023-01-24] MEDS ORDERED: AZIT250T PO (01:52)
== END 2023-01-24 01:27 | disposition home or self-care (01) ==
LOC: ER 22:55
DX: J20.9 Acute bronchitis, unspecified (principal); E03.9 Hypothyroidism, unspecified; Z88.0 Allergy status to penicillin; Z79.899 Other long term (current) drug therapy; Z20.822 Contact with and (suspected) exposure to COVID-19
CPT/HCPCS: 99284; 71045; 87426; 94640; J7512; C9803

== ENCOUNTER 2023-07-27 19:29 | Emergency (ER) | payer OTHER ==
[~2023-07-27] VITALS: Ht 162.6 cm; Wt 127.0 kg
[~2023-07-27 19:29] MED LIST changes: +ALBU0.633 IH; +ALBU8.5H8 IH; +AZIT250T PO; +PRED20TA PO; +PROM118S PO
[2023-07-27] MEDS ORDERED: ACETAMINOPHEN ES 500 MG TABLET PO ONE (21:30)
[2023-07-27] MEDS ORDERED: ACETAMINOPHEN ES 500 MG TABLET ONE (21:48)
[2023-07-27 21:57] LABS: APPEARANCE,URINE SLIGHTLY CLOUDY (CLEAR); BILIRUBIN,URINE NEGATIVE (NEGATIVE); BLOOD, URINE 3+ Ery/uL (NEGATIVE); COLOR,URINE YELLOW (YELLOW); KETONES,URINE NEGATIVE (NEGATIVE); LEUKOCYTE ESTERASE ,URINE TRACE (NEGATIVE); NITRITE, URINE NEGATIVE (NEGATIVE); PROTEIN,URINE TRACE mg/dl (NEGATIVE); UGLUCOSE NEGATIVE (NEGATIVE)
[2023-07-27 22:02] LABS: PREGNANCY TEST URINE QUAL NEGATIVE (NEGATIVE)
[2023-07-27 22:03] LABS: ADD URINE CULTURE NO; BACTERIA,URINE 1+ /HPF (None Seen); MUCUS,URINE Many /LPF (None Seen); RBC,URINE 51-80 /HPF (0-2)
[2023-07-27 22:31] LABS: INR 1.01 (0.91-1.10); PROTHROMBIN TIME 10.7 SECS (9.2-11.1)
[2023-07-27 22:38] LABS: ALBUMIN 3.6 g/dL (3.4-5.0); BILIRUBIN,DIRECT 0.1 mg/dL (0.0-0.2); BILIRUBIN,TOTAL 0.6 mg/dL (0.2-1.0); CALCIUM, SERUM 8.8 mg/dL (8.5-10.1); CREATININE 0.9 mg/dL (0.6-1.3); POTASSIUM 3.9 mmol/L (3.5-5.1); TOTAL PROTEIN, SERUM 7.8 g/dL (6.4-8.2)
[2023-07-27] MEDS ORDERED: NITR100C PO (23:40)
[2023-07-27] MEDS ORDERED: ACET-2605 PO (23:40)
[2023-07-27 23:49] VITALS: BP 136/92; TEMP 98.3; O2SAT 99
== END 2023-07-27 23:49 | disposition home or self-care (01) ==
LOC: ER 19:34
DX: N39.0 Urinary tract infection, site not specified (principal); N93.9 Abnormal uterine and vaginal bleeding, unspecified; R10.2 Pelvic and perineal pain; E03.9 Hypothyroidism, unspecified; F17.200 Nicotine dependence, unspecified, uncomplicated; Z88.0 Allergy status to penicillin; Z79.899 Other long term (current) drug therapy
CPT/HCPCS: 36415; 76856-TC; 80048-TC; 80076-TC; 81001; 84702-TC; 84703-TC; 85730-TC

== ENCOUNTER 2024-10-08 18:11 | Emergency (ER) | payer OTHER ==
[~2024-10-08] VITALS: Ht 170.2 cm; Wt 139.3 kg
[~2024-10-08 18:11] MED LIST changes: +ACET-2605 PO; +NITR100C PO
[2024-10-08 18:24] VITALS: TEMP 97.9
[2024-10-08] MEDS ORDERED: PANTOPRAZOLE 40 MG VIAL ONE (18:55)
[2024-10-08 19:22] LABS: BASOPHILS # (AUTO) 0.1 K/uL (0.0-0.2); BASOPHILS % (AUTO) 1.1 % (0.0-2.0); EOSINOPHILS # (AUTO) 0.3 K/uL (0.0-0.7); EOSINOPHILS % (AUTO) 3.6 % (0.0-6.0); HEMATOCRIT 42 % (33-45); HEMOGLOBIN 14.2 g/dL (11.5-14.8); LYMPHOCYTES # (AUTO) 2.9 K/uL (0.8-4.8); MEAN CORPUSCULAR HEMOGLOBIN 30 PG (26.0-33.0); MEAN CORPUSCULAR HGB CONC 34 g/dl (31.0-36.0); MEAN CORPUSCULAR VOLUME 89 fL (82-100); MONOCYTES # (AUTO) 0.5 K/uL (0.1-1.30); NEUTROPHILS # (AUTO) 5.5 K/uL (1.8-8.9); NEUTROPHILS % (AUTO) 59.3 % (43.0-81.0); RED BLOOD CELL COUNT(AUTO) 4.74 MIL/uL (4.0-5.2); RED CELL DISTRIBUTION WIDTH 14.2 % (11.5-15.0); WHITE BLOOD COUNT (AUTO) 9.3 K/uL (4.3-11.0)
[2024-10-08 19:40] LABS: CREATININE 1.2 mg/dL (0.6-1.3); POTASSIUM 3.9 mmol/L (3.5-5.1)
[2024-10-08 19:46] LABS: BILIRUBIN,DIRECT 0.2 mg/dL (0.0-0.2); BILIRUBIN,TOTAL 1.2 mg/dL (0.2-1.0); TOTAL PROTEIN, SERUM 7.7 g/dL (6.4-8.2)
[2024-10-08 19:48] LABS: APPEARANCE,URINE SLIGHTLY CLOUDY (CLEAR); BILIRUBIN,URINE 1+ (NEGATIVE); BLOOD, URINE 1+ Ery/uL (NEGATIVE); COLOR,URINE YELLOW (YELLOW); KETONES,URINE TRACE mg/dL (NEGATIVE); LEUKOCYTE ESTERASE ,URINE NEGATIVE (NEGATIVE); NITRITE, URINE NEGATIVE (NEGATIVE); PROTEIN,URINE TRACE mg/dl (NEGATIVE); UGLUCOSE NEGATIVE (NEGATIVE)
[2024-10-08 19:50] LABS: PREGNANCY TEST URINE QUAL NEGATIVE (NEGATIVE)
[2024-10-08 19:52] LABS: ADD URINE CULTURE NO; BACTERIA,URINE 1+ /HPF (None Seen); MUCUS,URINE Few /LPF (None Seen); SQUAMOUS EPITHELIAL CELL,UR 21-50 /HPF (None Seen); WBC,URINE 0-2 /HPF (0-3)
[2024-10-08] MEDS: IV NS 0.9% 1,000 ML BAG IV ONE (19:54)
[2024-10-08] MEDS: PANTOPRAZOLE 40 MG VIAL IV ONE (19:54)
[2024-10-08 20:09] LABS: PLATELET COUNT (AUTO) 183 K/uL (150-450)
[2024-10-08] MEDS ORDERED: PANT40TA2 PO (20:18)
[2024-10-08 20:39] VITALS: BP 139/89; O2SAT 98
== END 2024-10-08 20:27 | disposition home or self-care (01) ==
LOC: ER 18:15
DX: R10.11 Right upper quadrant pain (principal); E03.9 Hypothyroidism, unspecified; F17.200 Nicotine dependence, unspecified, uncomplicated; K76.0 Fatty (change of) liver, not elsewhere classified; Z79.52 Long term (current) use of systemic steroids; Z88.0 Allergy status to penicillin; Z90.49 Acquired absence of other specified parts of digestive tract
CPT/HCPCS: 99284; 74176; 71045; 85025; 80048; 83690; 80076; 84703; 81001; 36415; J7030; J2470